=== PATIENT | male | born 1995 | race African-American/Black ===

== ENCOUNTER 2022-01-23 11:43 | Emergency (ER) | payer OTHER ==
[~2022-01-23] VITALS: Ht 177.8 cm; Wt 100.0 kg
[2022-01-23 11:45] VITALS: BP 164/78
[2022-01-23] MEDS ORDERED: LIDOCAINE HCL 1% 20ML VIAL (Pyxis) INJ INFIL ONE (12:15)
[2022-01-23] MEDS ORDERED: TETANUS, DIPHTHERIA, PERTUSSIS VAC/PF 0.5ML (>10YR OLD) IM ONE (12:15)
== END 2022-01-23 14:20 | disposition home or self-care (01) ==
LOC: ER 11:43
DX: S01.511A Laceration without foreign body of lip, initial encounter (principal); Z86.59 Personal history of other mental and behavioral disorders; Y04.0XXA Assault by unarmed brawl or fight, initial encounter; Y93.89 Activity, other specified; Y92.89 Other specified places as the place of occurrence of the external cause; Y99.8 Other external cause status
CPT/HCPCS: 12011; 90471; 90715; 99283; J3490